=== PATIENT | female | born 1995 | race Caucasian/White ===

== ENCOUNTER 2017-09-23 18:45 | Outpatient (CLI) | payer OTHER | END 2017-09-23 21:30 | disposition home or self-care (01) | LOC: OBT 18:45 → L-D 18:47 → OBT 21:30 | DX: O36.8130 Decreased fetal movements, third trimester, not applicable or unspecified (principal); Z3A.28 28 weeks gestation of pregnancy | CPT/HCPCS: 76818 ==

== ENCOUNTER 2017-11-14 15:26 | Emergency (ER) | payer OTHER | END 2017-11-14 16:05 | disposition home or self-care (01) | LOC: FTE 15:26 | DX: O9A.213 Injury, poisoning and certain other consequences of external causes complicating pregnancy, third trimester (principal); S40.862A Insect bite (nonvenomous) of left upper arm, initial encounter; S21.252A Open bite of left back wall of thorax without penetration into thoracic cavity, initial encounter; O99.513 Diseases of the respiratory system complicating pregnancy, third trimester; J45.909 Unspecified asthma, uncomplicated; W57.XXXA Bitten or stung by nonvenomous insect and other nonvenomous arthropods, initial encounter; Y92.9 Unspecified place or not applicable; Z3A.36 36 weeks gestation of pregnancy | CPT/HCPCS: 99282; Z7502 ==

== ENCOUNTER 2017-12-11 23:48 | Inpatient (IN) | payer OTHER ==
[2017-12-11] MEDS ORDERED: LACTATED RINGER'S 1,000 ML IV (23:55)
[2017-12-12] MEDS ORDERED: IBUPROFEN 600 MG TAB PO
[2017-12-12] MEDS ORDERED: BUTORPHANOL 2 MG INJ IV
[2017-12-12] MEDS ORDERED: LIDOCAINE 1% (MPF) 30 ML INJ INJ
[2017-12-12] MEDS ORDERED: LACTATED RINGER'S 1,000 ML IV*
[2017-12-12 00:07] LABS: ADD MAN DIFF? NO
[2017-12-12 00:11] LABS: BASOPHILS % 0.2 % (0.0-2.0); EOSINOPHILS # 0.1 10^3/ul (0.0-0.5); EOSINOPHILS % 0.5 % (0.0-7.0); HEMATOCRIT 37.3 % (37.0-47.0); LYMPHOCYTES # 3.1 10^3/ul (0.8-2.9); LYMPHOCYTES % 22.7 % (15.0-51.0); MEAN CORPUSCULAR HEMOGLOBIN 29.7 pg (29.0-33.0); MEAN CORPUSCULAR HGB CONC 34.9 g/dl (32.0-37.0); MEAN CORPUSCULAR VOLUME 85.4 fl (82.0-101.0); MEAN PLATELET VOLUME 11.9 fl (7.4-10.4); MONOCYTE # 1.1 10^3/ul (0.3-0.9); MONOCYTES % 8.3 % (0.0-11.0); NEUTROPHIL # 9.3 10^3/ul (1.6-7.5); NEUTROPHILS % 67.8 % (39.0-77.0); PLATELET COUNT 205 10^3/UL (140-415); RED BLOOD COUNT 4.37 10^6/ul (4.20-5.40); RED CELL DISTRIBUTION WIDTH 12.6 % (11.5-14.5)
[2017-12-12 00:11] LABS: WHITE BLOOD COUNT 13.7 10^3/ul (4.8-10.8)
[2017-12-12] MEDS ORDERED: LIDOCAINE 0.5% (SDV) 50 ML INJ (00:21)
[2017-12-12] MEDS ORDERED: CARBOPROST 250 MCG INJ IM ×2 (01:00)
[2017-12-12] MEDS ORDERED: MISOPROSTOL 200 MCG TAB PR ×2 (01:00)
[2017-12-12] MEDS ORDERED: OXYTOCIN 30 UNITS/LR 500 ML IV ×4 (01:00)
[2017-12-12] MEDS ORDERED: METHYLERGONOVINE 0.2 MG INJ IM ×2 (01:00)
[2017-12-12 01:12] LABS: INR 0.85; PROTIME 11.7 Sec (11.9-14.9); PT RATIO 0.9
[2017-12-12 01:13] LABS: PARTIAL THROMBOPLASTIN TIME 23.6 Sec (23.0-35.0)
[2017-12-12] MEDS: HYDROCODONE/APAP (5/325) TAB PO ×4 (01:58→20:18)
[2017-12-12] MEDS: LANOLIN 7 GM TUBE TOP (03:22)
[2017-12-12] MEDS: BENZOCAINE 20% 56 ML SPRAY TOP (03:22)
[2017-12-12] MEDS: OXYTOCIN 30 UNITS/LR 500 ML IV (03:26)
[2017-12-12 03:35] LABS: HEPATITIS B SURFACE ANTIGEN NEGATIVE (NEGATIVE)
[2017-12-12 04:15] LABS: AMPHETAMINE/METHAMPHETAMINE NEGATIVE (NEGATIVE); BARBITURATES NEGATIVE (NEGATIVE); BENZODIAZEPINES NEGATIVE (NEGATIVE); CANNABINOIDS NEGATIVE (NEGATIVE); COCAINE NEGATIVE (NEGATIVE); OPIATES NEGATIVE (NEGATIVE)
[2017-12-12] MEDS: IBUPROFEN 600 MG TAB PO ×4 (05:54→23:38)
[2017-12-12 15:54] LABS: RAPID PLASMA REAGIN NONREACTIVE (NR)
[2017-12-12] MEDS: LACTATED RINGER'S 1,000 ML IV* ×3 (16:53→19:00)
[2017-12-13] MEDS: LACTATED RINGER'S 1,000 ML IV* (00:53)
[2017-12-13] MEDS: IBUPROFEN 600 MG TAB PO ×3 (05:33→17:41)
[2017-12-13 07:48] LABS: ADD MAN DIFF? NO
[2017-12-13 07:49] LABS: BASOPHILS % 0.2 % (0.0-2.0); EOSINOPHILS # 0.2 10^3/ul (0.0-0.5); EOSINOPHILS % 1.6 % (0.0-7.0); HEMATOCRIT 35.3 % (37.0-47.0); HEMOGLOBIN 12.1 g/dl (12.0-16.0); LYMPHOCYTES # 2.9 10^3/ul (0.8-2.9); MEAN CORPUSCULAR HEMOGLOBIN 30.1 pg (29.0-33.0); MEAN CORPUSCULAR HGB CONC 34.3 g/dl (32.0-37.0); MEAN CORPUSCULAR VOLUME 87.8 fl (82.0-101.0); MEAN PLATELET VOLUME 11.2 fl (7.4-10.4); MONOCYTE # 0.9 10^3/ul (0.3-0.9); MONOCYTES % 8.4 % (0.0-11.0); NEUTROPHIL # 6.3 10^3/ul (1.6-7.5); NEUTROPHILS % 61.3 % (39.0-77.0); PLATELET COUNT 158 10^3/UL (140-415); RED BLOOD COUNT 4.02 10^6/ul (4.20-5.40); RED CELL DISTRIBUTION WIDTH 13.1 % (11.5-14.5)
[2017-12-13 07:49] LABS: WHITE BLOOD COUNT 10.3 10^3/ul (4.8-10.8)
[2017-12-13] MEDS: HYDROCODONE/APAP (5/325) TAB PO ×2 (09:44→20:18)
[2017-12-14] MEDS: IBUPROFEN 600 MG TAB PO ×3 (00:30→12:51)
[2017-12-14] MEDS: HYDROCODONE/APAP (5/325) TAB PO (08:11)
[2017-12-14] MEDS: DIPHTH/TET/ACEL PERTUSS (ADULT) 0.5 ML VIAL IM* (12:51)
== END 2017-12-14 14:00 | disposition home or self-care (01) | DRG 807 ==
LOC: L-D 12-12 00:56 → PP1 12-12 02:46
PROVIDERS: Obstetrics & Gynecology
PROC: 10E0XZZ Delivery of Products of Conception, External Approach (ICD-10-PCS; principal; 2017-12-12)
PROC: 0KQM0ZZ Repair Perineum Muscle, Open Approach (ICD-10-PCS; 2017-12-12)
PROC: 4A1HXCZ Monitoring of Products of Conception, Cardiac Rate, External Approach (ICD-10-PCS; 2017-12-12)
PROC: 3E0234Z Introduction of Serum, Toxoid and Vaccine into Muscle, Percutaneous Approach (ICD-10-PCS; 2017-12-13)
PROC: 3E0234Z Introduction of Serum, Toxoid and Vaccine into Muscle, Percutaneous Approach (ICD-10-PCS; 2017-12-14)
DX: O48.0 Post-term pregnancy (principal); O70.1 Second degree perineal laceration during delivery; O69.81X0 Labor and delivery complicated by cord around neck, without compression, not applicable or unspecified; Z23 Encounter for immunization; Z37.0 Single live birth; Z3A.40 40 weeks gestation of pregnancy
CPT/HCPCS: 80307; 85025; 85610; 85730; 86592; 86850; 86900; 86901; 87340; 90686; 90715; 99464